=== PATIENT | male | born 1990 | race Caucasian/White ===

== ENCOUNTER 2020-10-20 14:36 | Outpatient (REF) | payer OTHER, SELFPAY ==
--- NOTE | ~2020-10-20 | XR_ITS ---
EXAMINATION: XR CHEST CLINICAL INFORMATION: Chest pain. COMPARISON: None TECHNIQUE: 2 views of the chest were obtained. FINDINGS: The lungs are clear. The cardiomediastinal silhouette is normal in size. There is no pleural effusion or pneumothorax. No acute osseous abnormality. XR/XR chest 2V IMPRESSION: No acute cardiopulmonary findings.
[2020-10-20 16:36] LABS: Hematocrit 40.9 % (42-52); Hemoglobin 13.5 g/dl (14.0-18.0); Mean Corpuscular Hemoglobin 28.7 pg (27.0-33.0); Mean Corpuscular Volume 86.8 fL (80-98); Mean Platelet Volume 10.5 fL (9.4-12.4); Platelet Count 258 X10*3/uL (160-400); Red Blood Count 4.71 X10*6/uL (4.60-5.80); White Blood Count 5.2 X10*3/uL (4.8-10.8)
[2020-10-20 16:57] LABS: Anion Gap 15 (12-20); Blood Urea Nitrogen 17 mg/dL (9-16); Calcium 9.6 mg/dL (8.4-10.2); Carbon Dioxide 24 mmol/L (22-29); Chloride 103 mmol/L (96-108); Estimated Glomerular Filt Rate > 60; Glucose Random 80 mg/dL (60-115); Potassium 4.2 mmol/L (3.3-5.1); Sodium 138 mmol/L (135-145)
== END 2020-10-20 14:37 | disposition home or self-care (01) ==
LOC: HO.HMGCLDS 14:36
PROVIDERS: PCP Pediatrics; Visit Provider Physician Assistant
DX: R07.89 Other chest pain (principal); I10 Essential (primary) hypertension
CPT/HCPCS: 36415; 71046; 80048; 85027

== ENCOUNTER → 2020-12-06 15:00 | Outpatient (BNVA) | payer OTHER, SELFPAY | PROVIDERS: PCP Pediatrics; Visit Provider Internal Medicine ==

== ENCOUNTER → 2021-01-31 09:39 | Outpatient (REF) | payer OTHER, SELFPAY ==
--- NOTE | 2021-01-31 09:42 | CA_ITS ---
Transthoracic Echocardiogram Patient (Last, First, Middle): Vahid Tate, Gender: Male Date of : 1990 Age: 30 Procedure Date: 01/31/2021 Procedure Type: Transthoracic Echocardiogram Location: OP Height: 175.26 cm Weight: 117. kg BSA: 2.30 m2 Heart Rate: bpm BP: 119 / 84 mmHg Striper: JENNY Referring MD: Tone Lopez MD Symptoms: R07.2 - Precordial pain Study Quality: Good ECG Rhythm: Sinus Conclusions: - The left ventricular systolic function is normal. The calculated ejection fraction is 63% by biplane method. - No obvious valvular pathology seen on this study. Findings Left Ventricle Normal left ventricular cavity size. There is normal left ventricular wall thickness. The left ventricular systolic function is normal. The calculated ejection fraction is 63% by biplane method. There is no evidence of regional wall motion abnormalities. Diastolic function is normal for age. Right Ventricle Normal right ventricular cavity size and systolic function. Atria Both atria are normal in size. Aortic Valve There is a normal trileaflet aortic valve. There is no aortic valve stenosis. There is no aortic valve regurgitation. Mitral Valve The mitral valve appears normal. There is no mitral valve regurgitation. There is no mitral valve stenosis. Pulmonic Valve The pulmonic valve was not well visualized. Tricuspid Valve The tricuspid valve was not well visualized. There is trace tricuspid valve regurgitation. The pulmonary artery systolic pressure is normal. Great Vessels The aortic annulus, sinuses of valsalva, and asc aorta are normal in size. Venous The inferior vena cava is normal in size and collapses greater than 50% with inspiration. Pericardium/Pleural There is no evidence of pericardial effusion. Prior Study Comparison No prior study available for comparison. Recommendations, Care & Conclusions No obvious valvular pathology seen on this study. Measurements 2D Linear Measurements IVSd: 1.30 0.6-0.9/0.6-1.0 cm LVIDd: 4.82 3.9-5.3/4.2-5.9 cm LVIDd Index: 2.10 2.4-3.2/2.2-3.1 cm/m2 LVIDs: 3.29 2.0-3.6 cm LVPWd: 1.11 0.7-1.1 cm Ao Root: 3.10 2.1-3.5 cm LA Diam: 3.90 2.7-3.8/3.0-4.0 cm LAIDs Index: 1.70 1.5-2.3 cm/m2 LV Mass: 276.59 67-162/88-224 g LV Mass Index: 120.26 43-95/49-115 g/m2 LVOT Diam: 2.40 3.0+(-)1.3 cm 2D Systolic Function EF 4C: 53.60 >55% EF 2C: 70.90 >55% EF BiP: 63.30 >55% Mitral Valve MV Pk E: 0.64 MV PK A: 0.34 MV Decel Time: 115.00 E/A: 1.90 E'Lateral: 11.90 E'Medial: 8.38 E/E' Med: 7.60 E/E' Lat: 5.40 PHT: 34.00 MVA PHT: 6.47 Decel [place]: 5.57 Aortic Valve AoV Pk Yuri: 1.22 AoV Pk Grad: 6.00 LVOT LVOT Pk Yuri: 1.06 LVOT Mn Yuri: 0.67 LVOT VTI: 0.24 LVOT Pk Grad: 4.00 LVOT Mn Grad: 2.00 LVOT Diam: 2.40 LVOT Area: 4.52 Diastolic Function MV Pk E: 0.64 MV Pk A: 0.34 E/A: 1.90 E'Medial: 8.38 E/E' Med: 7.60 E' Laterial: 11.90 E/E' Lat: 5.40 Right Ventricle TAPSE (mm): 2.03 Tricuspid Valve TR Pk Yuri: 2.28 TR Pk Grad: 21.00 RA Press: 3.00 RVSP: 24.00 Great Vessels Aorta Ao Root-2D: 3.10 2.0-3.7 cm Ao Asc: 2.90 2.1-3.4 cm Updated in Other Vendor System with Status of Final Tone Lopez MD electronically signed on 02/02/2021 11:21:15 AM with status of Final
--- NOTE | 2021-01-31 09:42 | CA_ITS ---
Acquisition Time: 2021-01-31 10:40:07 Total Exercise Time: 00:09:51 Test Indications: CP Medications: SEE CHART Protocol: GREGORY Max HR: 160 BPM 85% of Pred: 188 BPM Max BP: 172/084 mmHG Max Work Load: 11.5 METS Exercise stress test with exercise 9 min 51 sec of Gregory protocol, with mild sob, no chest discomfort, without arrythmia, with normotensive response to exercise, without EKG changes that meet criteria for ischemia, there is downsloping ST with T inversion lead III at baseline and throughout test. Test reviewed with Dr Lopez. Referred By: Tone Lopez Overread By: ZANDER CHIN
== END ==
LOC: HO.CARD 09:39
PROVIDERS: PCP Pediatrics; Visit Provider Internal Medicine
DX: R07.2 Precordial pain (principal)
CPT/HCPCS: 93017; 93306

== ENCOUNTER → 2021-02-07 15:14 | Outpatient (BNVA) | payer OTHER, SELFPAY | PROVIDERS: PCP Pediatrics; Visit Provider Internal Medicine ==

== ENCOUNTER 2021-03-01 13:47 | Outpatient (REF) | payer OTHER, SELFPAY | END 2021-03-01 13:48 | disposition home or self-care (01) | LOC: HO.HMGCLDS 13:47 | PROVIDERS: Visit Provider Internal Medicine | DX: Z20.822 Contact with and (suspected) exposure to COVID-19 (principal) | CPT/HCPCS: C9803; U0003; U0005 ==

== ENCOUNTER 2022-09-19 10:08 | Outpatient (AMB) | payer OTHER, SELFPAY ==
--- NOTE | 2022-09-19 10:56 | AM.OFFWIN_ITS ---
Intake Vital Signs 09/19/22 11:14 BP 130/82 Blood Pressure Location Lt brachial Position Sitting Pulse 87 Pulse Source Pulse Oximeter Temp 97.5 F Temp Source Temporal Artery Scan Pulse Oximetry (%) 97 Oxygen Delivery Method Room Air Intake Visit Reasons: EP respiratory [phone] Intake Note: Patient here for runny nose, green mucus, difficulty breathing, sore throat, cough for about 5 days. Patient Tobacco Use Status: Never used Tobacco Allergies No Known Allergies Allergy (Verified 09/19/22 11:42) Medication List - Last Reconciled 09/19/22 by Ney Nolan MD levothyroxine 88 mcg PO DAILY methylphenidate HCl 10 mg PO QAM Do you need a note to return to daycare/school/sports/work: No HPI EP respiratory [phone] HPI Details Patient presents for a sick visit. Reporting symptoms of sinus congestion, sore throat and difficulty swallowing. Low-grade fever. No family member is sick. No recent travel. Patient reports symptoms of malaise and fatigue. [facility] Surgical History History of testicular surgery Family History Father No problems noted. Mother No problems noted. Social History Patient Tobacco Use Status: Never used Tobacco Physical Exam Vital Signs: Last Vital Signs Temp 97.5 F 09/19/22 11:14 Pulse 87 09/19/22 11:14 BP 130/82 09/19/22 11:14 Pulse Ox 97 09/19/22 11:14 Oxygen Delivery Method Room Air 09/19/22 11:14 Const General: cooperative and healthy appearing Nutritional Appearance: well nourished Orientation/consciousness: patient oriented x3 Limitations: no limitations HEENT Head: Yes normal to inspection Eyes General: appearance normal, both eyes and all related structures Neck Neck: Yes normal visual inspection Chest Chest palpation & inspection: normal palpation of entire chest wall Resp Effort & Inspection: normal respiratory effort Neuro General: patient oriented x3 Assessment & Plan Assessment & Plan (1) Upper respiratory tract infection: Code(s): J06.9 - Acute upper respiratory infection, unspecified Plan: Antibiotics ordered. Increase fluid intake. Tylenol for aches and pains. If symptoms worsen, follow-up here for a recheck. Coding Level of Care Code Est Pt Level 3 (11810) Diagnoses Upper respiratory tract infection J06.9
[2022-09-19 11:14] VITALS: BP 130/82; PULSE 87; TEMP 36.4; O2SAT 97
== END 2022-09-19 11:49 | disposition home or self-care (01) ==
PROVIDERS: PCP Pediatrics; Visit Provider Internal Medicine
DX: J06.9 Acute upper respiratory infection, unspecified (principal)
CPT/HCPCS: 99213